=== PATIENT | male | born 1960 | race Caucasian/White ===

== ENCOUNTER 2019-05-23 12:44 | Day surgery (SDC) | payer BC ==
--- NOTE | 2019-05-17 10:57 | HP ---
PREOPERATIVE HISTORY AND PHYSICAL: DATE OF ADMISSION/SURGERY: 05/23/19 DATE OF OFFICE VISIT/ENCOUNTER: 05/04/19 ATTENDING SURGEON: Jennifer Vásquez MD ([place]) * (DICTATED BY [facility] HOLLINGSWORTH) PROCEDURE: Excision of mass right index finger. 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 He complains of a lump on his right index finger that has been present for about a year. He denies any injury. He says that anything that pushes on it bothers it. It has gotten slightly bigger over time. He does not have any numbness or tingling associated with it. He would like to have the lump surgically removed. PAST MEDICAL HISTORY: Hypertension. PAST SURGICAL HISTORY: Left knee arthroscopy. CURRENT MEDICATIONS: Lisinopril 20 mg daily. ALLERGIES: No known drug allergies. FAMILY MEDICAL HISTORY: Noncontributory. SOCIAL HISTORY: The patient is employed as a landscape crew leader. He denies tobacco use and recreational drug use. He drinks alcohol on occasion. REVIEW OF SYSTEMS: Negative for general, cephalic, cardiovascular, respiratory , GI, , other musculoskeletal, integumentary, endocrine, neurologic, and hematologic symptoms. Infectious Disease: Negative for MRSA, hepatitis C, HIV. PHYSICAL EXAMINATION GENERAL: Well-developed, well-nourished 58-year-old male, in no acute distress. VITAL SIGNS: Height 6 feet 1 inch, weight 205 pounds, pulse rate 72, blood pressure 140/88. HEENT: Normocephalic, atraumatic. Pupils are equal, round, and reactive to light and accommodation. Extraocular movements are intact. Throat is clear. NECK: Supple. No palpable lymph nodes. PULMONARY: Lungs are clear to auscultation bilaterally. No wheezes, rales, or rhonchi. CARDIOVASCULAR: Regular rate and rhythm. S1, S2. No murmurs, rubs, or gallops. No edema. ABDOMEN: Positive bowel sounds. Soft and nontender. MUSCULOSKELETAL: On exam of his right index finger, he has a mass on the volar aspect of the finger distal to the DIP flexion crease. It is mildly tender to palpation. He has full range of motion of the finger. Skin is intact. Neurovascular function is intact. NEUROLOGIC: Alert and oriented x3. Cranial nerves II through XII are intact. Sensation is intact to light touch. IMPRESSION: Right index finger mass. PLAN: The patient is scheduled to undergo an excision mass right index finger with Dr. Vásquez on 05/23/19. He will return to the office 10 days postop for followup and suture removal. A prescription for tramadol was e-scribed to the patient's pharmacy for postoperative pain management. BERKLEY HOLLINGSWORTH [id number]/[facility] #: [id number] MTDFrancisco J
[2019-05-23] MEDS ORDERED: Lidocaine 1% INJ* 10 MG/ML 30 ML SDV ONE (14:16)
[2019-05-23 15:12] VITALS: BP 142/99
--- NOTE | 2019-05-24 02:04 | OP ---
DATE OF OPERATION: 05/23/19 [facility] DATE OF : 56 SURGEON: Jennifer Vásquez MD RN CARDIOVASCULAR ICU: [facility] ANESTHESIA: Local. PRE-OP DIAGNOSIS: Right index finger mass. POST-OP DIAGNOSIS: Right index finger mass. OPERATIVE PROCEDURE: Removal of right index finger mass. ESTIMATED BLOOD LOSS: Zero. TOURNIQUET TIME: About 10 minutes. INDICATIONS FOR PROCEDURE: Jules is a 58-year-old male who has a painful mass on the volar aspect of his right index finger distal to the DIP flexion crease. He presents for removal. DESCRIPTION OF PROCEDURE: The patient was brought to the operating room, was given a digital block with 10 cc of 1% plain lidocaine. The skin of his right upper extremity was prepped and draped in the usual sterile fashion. A Tourni- Cot was placed on the finger and was left in place for the duration of the procedure. 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 The wound was irrigated and the skin edges reapproximated with 4-0 nylon suture. The wound was dressed with Xeroform, 4x4, Kerlix, and Coban. The patient tolerated the procedure well and was brought to the recovery room in good condition. [id number]/[facility] #: [id number] MTDD
== END 2019-05-23 15:08 | disposition home or self-care (01) ==
LOC: EDSEX → OREAST 12:44 → MERGE 13:30 → OREAST 15:08
PROVIDERS: ATTEND Orthopaedic Surgery
DX: D48.1 Neoplasm of uncertain behavior of connective and other soft tissue (principal); I10 Essential (primary) hypertension
CPT/HCPCS: 88304